=== PATIENT | female | born 1990 | race Caucasian/White ===

== ENCOUNTER → 2024-08-05 12:38 | Outpatient (REF) | payer OTHER, SELFPAY | LOC: HWRAD 12:38 | PROVIDERS: ATTENDING PHYSICIAN Student in an Organized Health Care Education/Training Program | DX: M79.645 Pain in left finger(s) (principal) | CPT/HCPCS: 73110; 73130 ==

== ENCOUNTER → 2024-11-17 09:24 | Outpatient (REF) | payer OTHER, SELFPAY | LOC: HWRAD 09:24 | PROVIDERS: ATTENDING PHYSICIAN Student in an Organized Health Care Education/Training Program | DX: M25.571 Pain in right ankle and joints of right foot (principal) | CPT/HCPCS: 73610 ==